=== PATIENT | female | born 1950 | race American Indian/Alaskan Native ===

== ENCOUNTER 2018-01-11 20:52 | Emergency (ER) | payer MEDICARE ==
[2018-01-11 21:15] VITALS: BMI 37.1
[2018-01-11 21:21] VITALS: RESP 18
[2018-01-11] MEDS ORDERED: Sodium Chloride 0.9% 500 ML IV STA (21:52)
[2018-01-11 22:56] LABS: PH,URINE 5.5 (4.7-8.0); URINE BILIRUBIN NEGATIVE (NEGATIVE); URINE BLOOD LARGE (NEGATIVE); URINE GLUCOSE (UA) >=1000 mg/dL (NEGATIVE); URINE LEUKOCYTE ESTERASE NEGATIVE Leu/uL (NEGATIVE); URINE PROTEIN NEGATIVE mg/dL (<30 mg/dL); URINE UROBILINOGEN 0.2 E.U./dL (<1 E.U./dL)
[2018-01-11 22:57] LABS: URINE APPEARANCE CLEAR (CLEAR); URINE COLOR LIGHT YELLOW (YELLOW)
[2018-01-11 22:58] LABS: BASO # 0.04 K/mm3 (0.0-2.0); BASO % 0.3 % (0.0-3.0); EOS # 0.5 (0.0-0.7); EOS % 3.1 % (1.5-5.0); GRAN # 7.67 (1.4-6.5); HEMOGLOBIN 13.1 g/dL (12.0-16.0); LYMPH % 34.3 % (22.0-35.0); MEAN CELL VOLUME 73.7 fl (80.0-105.0); MEAN CORPUSCULAR HEMOGLOBIN 24.3 pg (25.0-35.0); MEAN PLATELET VOLUME 9.8 fl (7.0-11.0); MONO # 1.4 (0.1-0.6); MONO % 9.3 % (1.0-6.0); RBC 5.39 10^6/uL (3.5-6.1); RED CELL DISTRIBUTION WIDTH 15.4 % (11.5-14.5); WHITE BLOOD COUNT 14.5 10^3/ul (4.5-11.0)
[2018-01-11 23:06] LABS: ALBUMIN 4.6 g/dL (3.0-4.8); ALT/SGPT 6 U/L (7-56); AST/SGOT 50 U/L (14-36); BLOOD UREA NITROGEN 27 mg/dL (7-21); CALCIUM 9.4 mg/dL (8.4-10.5); GFR NON-AFRICAN AMERICAN > 60; LIPASE 335 U/L (23-300)
[2018-01-11 23:07] LABS: URINE AMORPHOUS SEDIMENT FEW; URINE BACTERIA MANY (NEG); URINE RBC 25 - 30 /hpf (0-2)
[2018-01-12] MEDS ORDERED: Iohexol 350 MG/100 ML VIAL ONE (00:01)
[2018-01-12 02:08] VITALS: O2SAT 98
--- NOTE | 2018-01-12 03:05 | ED PDOC ---
Arrival/HPI - General Chief Complaint: Abdominal Pain Time Seen by Provider: 01/11/18 21:37 Historian: Patient - History of Present Illness Narrative History of Present Illness (Text): 01/12/18 03:02 67-year-old female presents today with lower abdominal pain and burning upon urination and bleeding. Patient states she thinks that she noticed blood after urinating. Patient states for the past 6 days she's been having a little bit of pain around the umbilicus. Patient states that today the pain worsened. She describes the pain as a burning sensation in the lower abdomen. She denies chest pain or shortness of breath he denies fevers or chills. Patient denies radiation of pain to the back. No medications have been taken for pain at home. Patient denies bladder or bowel incontinence. Denies numbness weakness or tingling in the lower extremities. Patient states her last visit to the [employer] [facility] was 2 years ago. Past Medical History - Provider Review Nursing Documentation Reviewed: Yes - Travel History Have you recently traveled outside [place] w/in the past 3 mons?: No - Infectious Disease Hx of Infectious Diseases: None - Cardiac Hx Cardiac Disorders: Yes - Pulmonary Hx Respiratory Disorders: Yes Hx Bronchitis: Yes - Neurological Hx Neurological Disorder: No - HEENT Hx HEENT Disorder: No - Renal Hx Renal Disorder: No - Endocrine/Metabolic Hx Endocrine Disorders: Yes Hx Diabetes Mellitus Type 1: Yes - Hematological/Oncological Hx Blood Disorders: No - Musculoskeletal/Rheumatological Hx Musculoskeletal Disorders: No - Gastrointestinal Hx Gastrointestinal Disorders: No - Genitourinary/Gynecological Hx Genitourinary Disorders: No - Psychiatric Hx Psychophysiologic Disorder: No Hx Substance Use: No Family/Social History - Physician Review Nursing Documentation Reviewed: Yes Family/Social History: Unknown Family HX Smoking Status: Never Smoked Hx Alcohol Use: No Hx Substance Use: No Allergies/Home Meds Allergies/Adverse Reactions: Allergies ibuprofen Allergy (Verified 01/11/18 21:16) NAUSEA latex Allergy (Verified 01/11/18 21:16) ITCHING Home Medications: Home Meds Medication Instructions Recorded Confirmed Empagliflozin/Linagliptin 1 tab PO DAILY 01/11/18 01/11/18 [Glyxambi 25 mg-5 mg Tablet] Lisinopril [Zestril] 10 mg PO DAILY 01/11/18 01/11/18 Rosuvastatin Calcium [Crestor] 10 mg PO DAILY 01/11/18 01/11/18 Review of Systems - Review of Systems Constitutional: absent: Fatigue, Fevers Respiratory: absent: SOB, Cough Cardiovascular: absent: Chest Pain, Palpitations Gastrointestinal: Abdominal Pain. absent: Constipation, Diarrhea, Nausea, Vomiting Genitourinary Female: Dysuria, Hematuria, Vaginal Bleeding. absent: Frequency Musculoskeletal: absent: Arthralgias, Back Pain, Neck Pain Skin: absent: Rash, Pruritis Neurological: absent: Headache, Dizziness Psychiatric: absent: Anxiety, Depression Physical Exam Vital Signs Reviewed: Yes Vital Signs Temp Pulse Resp BP Pulse Ox 01/12/18 02:56 97.7 F 68 18 137/80 98 01/12/18 01:00 98.8 F 71 18 116/72 98 01/11/18 21:19 99.5 F 80 18 116/81 95 Temperature: Afebrile Blood Pressure: Normal Pulse: Regular Respiratory Rate: Normal Appearance: Positive for: Well-Appearing, Non-Toxic, Comfortable Pain Distress: None Mental Status: Positive for: Alert and Oriented X 3 - Systems Exam Head: Present: Atraumatic Mouth: Present: Moist Mucous Membranes Neck: Present: Normal Range of Motion Respiratory/Chest: Present: Clear to Auscultation, Good Air Exchange. No: Respiratory Distress, Accessory Muscle Use Cardiovascular: Present: Regular Rate and Rhythm, Normal S1, S2. No: Murmurs Abdomen: Present: Tenderness (+ minimal lower abdominal tenderness). No: Distention, Peritoneal Signs, Rebound, Guarding Genitourinary/Pelvic Exam: Present: Normal External Genitalia, Vaginal Bleeding (small amount of vaginal bleeding noted), Other (chaparoned by [employer]). No: Vaginal Discharge Neurological: Present: GCS=15, Speech Normal Psychiatric: Present: Alert, Oriented x 3 Medical Decision Making ED Course and Treatment: 01/12/18 03:05 Patient is nontoxic well appearing with stable vital signs presenting with lower abdominal pain CBC: wbc:14.5 CMP glucose; 169 Lipase 335 Urinalysis + blood CAT scan:FINDINGS: Lower thorax: Mild dependent atelectatic changes in the lungs. ABDOMEN: Liver: Normal. No mass. Gallbladder and bile ducts: Normal. No calcified stones. No ductal dilation. Pancreas: Normal. No ductal dilation. Spleen: Normal. No splenomegaly. Adrenals: Normal. No mass. Kidneys and ureters: Normal. No hydronephrosis. Stomach and bowel: Normal. No obstruction. No mucosal thickening. Appendix: No evidence of appendicitis. PELVIS: Bladder: Unremarkable as visualized. Reproductive: Calcified uterine fibroids. ABDOMEN and PELVIS: Intraperitoneal space: Normal. No free air. No significant fluid collection. Bones/joints: Degenerative changes of the osseous structures. Soft tissues: Small umbilical fat-containing hernia. Vasculature: Mild atherosclerotic calcification of the aorta and branching vessels. Lymph nodes: Normal. No enlarged lymph nodes. IMPRESSION: No definite acute abdominal pathologic finding. Ultrasound transvaginal: FINDINGS: Uterus/cervix: Uterus is appears normal in size 4.5 x 6.9 x 7.9 cm. Endometrial stripe is 7 mm thickness. Multiple hypoechoic myometrial rounded structures within the uterus- Anterior lower wall1.3 x 0.9 x 1.4 cm, Anterior wall, right 2.6 x 2.5 x 1.9 cm, Anterior wall right with calcifications 3.3 x 3.2 x 3.5 cm Right ovary: Bilateral ovaries not visualized. Left ovary: See above. Free fluid: No evidence of pelvic free fluid. IMPRESSION: 1. Multiple uterine fibroids as described above. 2. Bilateral ovaries not visualized. 3. No evidence of pelvic free fluid. Patient reassessment:pt is non toxic well appearing; no distress. stable vitals. pt with dysuria and lower abdominal pain; will d/c home with keflex. Discussed all results with patient in depth. advised patient that she needs to f /u with EXHIBIT DISPLAY REPRESENTATIVE within the next 2days. advised patient of concern for Cancer with this vaginal bleeding. Had a long in-depth conversation with the patient and her daughter regarding vaginal bleeding and the need for immediate follow-up with the EXHIBIT DISPLAY REPRESENTATIVE due to cancer concern. advised patient to return immediately is symptoms worsen, persist or if new symptoms develop. Patient verbalizes understanding of discharge instructions and need for immediate followup. all aspects of this case were discussed the attending of record. Impression: Abdominal pain, dysuria, vaginal bleeding tyelnol every 4 hours as needed for pain Keflex; 1 capsule twice daily x 7 days. Follow up with the EXHIBIT DISPLAY REPRESENTATIVE within the next 2 days regarding your vaginal bleeding Follow up with the GI specialist (stomach specialist) within the next 2 days. Follow up with primary care physician within the next 2 days Return immediately if symptoms worsen persist or if new symptoms develop: High fevers, heavy bleeding, increasing pain, vomiting, diarrhea or any other concerning symptoms develop 01/12/18 03:24 - Lab Interpretations Lab Results: 01/11/18 22:48 01/11/18 22:48 Lab Results 01/11/18 22:48: WBC 14.5 H, RBC 5.39, Hgb 13.1, Hct 39.7, MCV 73.7 L, MCH 24.3 L , MCHC 33.0, RDW 15.4 H, Plt Count 275, MPV 9.8, Gran % 53.0, Lymph % (Auto) 34.3, [place] % (Auto) 9.3 H, Eos % (Auto) 3.1, Baso % (Auto) 0.3, Gran # 7.67 H, Lymph # (Auto) 5.0 H, [place] # (Auto) 1.4 H, Eos # (Auto) 0.5, Baso # (Auto) 0.04 01/11/18 22:48: Sodium 142, Potassium 3.7, Chloride 103, Carbon Dioxide 26, Anion Gap 16, BUN 27 H, Creatinine 0.8, Est GFR ( Amer) > 60, Est GFR ( Non-Af Amer) > 60, Random Glucose 169 H, Calcium 9.4, Total Bilirubin 0.6, AST 50 H, ALT 6 L, Alkaline Phosphatase 100, Total Protein 9.2 H, Albumin 4.6, Globulin 4.6, Albumin/Globulin Ratio 1.0 L, Lipase 335 H 01/11/18 22:48: Urine Color Light yellow, Urine Appearance Clear, Urine pH 5.5, Ur Specific [place] 1.020, Urine Protein Negative, Urine Glucose (UA) >=1000, Urine Ketones Negative, Urine Blood Large H, Urine Nitrate Negative, Urine Bilirubin Negative, Urine Urobilinogen 0.2, Ur Leukocyte Esterase Negative, Urine RBC 25 - 30, Urine WBC 1 - 3, Ur Epithelial Cells 4 - 5, Amorphous Sediment Few, Urine Bacteria Many, Urine Other Uyeast - RAD Interpretation Radiology Orders: 01/11/18 21:51 ABD & PELVIS IV CONTRAST ONLY [CT] Stat 01/11/18 21:52 CHEST PORTABLE [RAD] Stat 01/12/18 01:55 TRANSVAGINAL [US] Stat - Medication Orders Current Medication Orders: Discontinued Medications Sodium Chloride (Sodium Chloride 0.9%) 500 mls @ 999 mls/hr IV .Q31M STA Stop: 01/11/18 22:22 Last Admin: 01/11/18 22:30 Dose: 999 mls/hr eMAR Start Stop Document 01/11/18 22:30 RG (Rec: 01/11/18 22:[address] [facility] [id number]) Intravenous Solution Start Date 01/11/18 Start Time 22:30 Disposition/Present on Arrival - Present on Arrival Any Indicators Present on Arrival: No History of DVT/PE: No History of Uncontrolled Diabetes: No Urinary Catheter: No History of Decub. Ulcer: No History Surgical Site Infection Following: None - Disposition Have Diagnosis and Disposition been Completed?: Yes Diagnosis: Abdominal pain, Vaginal bleeding, Urinary tract infection, Fibroids Disposition: HOME/ ROUTINE Disposition Time: 03:20 Patient Plan: Discharge Patient Problems: Current Active Problems Problem Status Onset Abdominal pain Acute Fibroids Acute Urinary tract infection Acute Vaginal bleeding Acute Condition: GOOD Discharge Instructions (ExitCare): Urinary Tract Infections in Adults, Acute Abdomen (Belly Pain), Adult (DC), Uterine Fibroids (DC) Additional Instructions: tyelnol every 4 hours as needed for pain Keflex; 1 capsule twice daily x 7 days. Follow up with the EXHIBIT DISPLAY REPRESENTATIVE within the next 2 days regarding your vaginal bleeding Follow up with the GI specialist (stomach specialist) within the next 2 days. Follow up with primary care physician within the next 2 days Return immediately if symptoms worsen persist or if new symptoms develop: High fevers, heavy bleeding, increasing pain, vomiting, diarrhea or any other concerning symptoms develop Prescriptions: Cephalexin [Keflex] 500 mg PO BID #14 capsule Referrals: Zenobia Abarca MD [Medical Doctor] - Follow up with primary Anthony Martin MD [Staff Provider] - Follow up with primary Bryon Rogers DO [Staff Provider] - Follow up with primary Forms: [employer] (Nepalese), WORK NOTE
[2018-01-12 03:48] VITALS: BP 130/72; PULSE 71; TEMP 97.8
--- NOTE | 2018-01-12 09:05 | CT ---
Date of service: 01/12/2018 PROCEDURE: CT Abdomen and Pelvis with contrast HISTORY: abd pain COMPARISON: None. TECHNIQUE: Contrast dose: 100 cc of Omni 350 Radiation dose: Total exam DLP = 1063 mGy-cm. This CT exam was performed using one or more of the following dose reduction techniques: Automated exposure control, adjustment of the mA and/or kV according to patient size, and/or use of iterative reconstruction technique. FINDINGS: LOWER THORAX: Unremarkable. LIVER: Unremarkable. No gross lesion or ductal dilatation. GALLBLADDER AND BILE DUCTS: Unremarkable. PANCREAS: Unremarkable. No gross lesion or ductal dilatation. SPLEEN: Unremarkable. ADRENALS: Unremarkable. No mass. KIDNEYS AND URETERS: Unremarkable. No hydronephrosis. No solid mass. VASCULATURE: Unremarkable. No aortic aneurysm. BOWEL: Unremarkable. No obstruction. No gross mural thickening. APPENDIX: Normal appendix. PERITONEUM: Unremarkable. No free fluid. No free air. LYMPH NODES: Unremarkable. No enlarged lymph nodes. BLADDER: Unremarkable. REPRODUCTIVE: Large calcified fibroids are seen on the inferior aspect of the uterine fundus. These invaginate the superior border of the bladder BONES: No acute fracture. OTHER FINDINGS: The report concurs with the preliminary [facility] report IMPRESSION: No acute findings
--- NOTE | 2018-01-12 09:58 | US ---
Date of service: 01/12/2018 HISTORY: pain/bleeding COMPARISON: None available. TECHNIQUE: Transabdominal and transvaginal FINDINGS: UTERUS: Measures 7.8 x 4.4 x 6.8 cm. Three discrete uterine fibroids identified. Lower uterine segment anterior intramural fibroid, 9 x 13 x 14 mm. Anterior intramural fibroid, 2.6 x 2.5 x 1.9 cm. Coarsely calcified right anterior intramural fibroid, 3.3 x 3.2 x 3.5 cm. ENDOMETRIUM: Measures 7 mm in diameter. This is abnormally thickened in a postmenopausal woman. Further evaluation is urged for evaluation of possible endometrial hyperplasia or endometrial neoplasm. CERVIX: No cervical abnormality identified. RIGHT OVARY: Not visualized LEFT OVARY: Not visualized FREE FLUID: No significant free fluid noted. OTHER FINDINGS: None. IMPRESSION: Multiple uterine fibroids. Largest 3.5 cm. Thickened endometrium, 7 mm maximally. Further evaluation is urged with endometrial biopsy or hysteroscopy. Ovaries not visualized.
--- NOTE | 2018-01-12 11:56 | RAD ---
Date of service: 01/11/2018 HISTORY: abd pain COMPARISON: No prior. FINDINGS: LUNGS: No active pulmonary disease. PLEURA: No significant pleural effusion identified, no pneumothorax apparent. CARDIOVASCULAR: Normal. OSSEOUS STRUCTURES: No significant abnormalities. VISUALIZED UPPER ABDOMEN: Normal. OTHER FINDINGS: None. IMPRESSION: No active disease.
== END 2018-01-12 03:49 | disposition home or self-care (01) ==
LOC: ED 20:52
DX: R10.30 Lower abdominal pain, unspecified (principal); N39.0 Urinary tract infection, site not specified; D25.9 Leiomyoma of uterus, unspecified; N93.9 Abnormal uterine and vaginal bleeding, unspecified
CPT/HCPCS: 71045; 74177; 76830; 80053; 81001; 83690; 85025; 87040; 87086; 99284; J7040; Q9967